=== PATIENT | male | born 1995 | race Caucasian/White ===

== ENCOUNTER 2017-10-24 16:43 | Emergency (ER) | payer SELFPAY ==
[~2017-10-24] VITALS: Ht 185.4 cm; Wt 72.1 kg
[~2017-10-24 16:43] MED LIST: IBUP600T26 PO; RANI300T PO
[2017-10-24 16:52] VITALS: BP 131/60; PULSE 96; RESP 18; TEMP 98.8; O2SAT 99
[2017-10-24] MEDS ORDERED: CLIN300C5 PO (17:26)
[2017-10-24] MEDS ORDERED: MAGICADU2 SWISH-SWAL (17:28)
--- NOTE | 2017-10-24 17:40 | PD ---
HPI . Mouth pain Chief Complaint: ENT Complaint Time Seen by Provider: 17:22 Travel History International Travel<30 days: No Contact w/Intl Traveler<30days: No Traveled to known affect area: No History of Present Illness HPI This patient presents with a chief complaint of mouth pain. Onset was a week or so ago. He states that he has been to see the dentist and that the dentist did not really do anything for him. He does state that the dentist gave him a quote for extraction of his wisdom teeth. The patient is complaining of pain in his gums. It has progressed to involve throat pain as well. He states that he has started running a fever in the past couple of days. T-max has been 100.1. He states that his throat and gum pain is getting progressively worse and he describes the pain as shooting and rates it 9/10. It has been unrelieved by warm salt water swishes and by Advil. PFSH Past Medical History ADHD: Yes (NOT ON ANY MEDS ANY MORE) Developmental Delay: No Diminished Hearing: No Respiratory: Yes (ENVIRONMENTAL ALLERGIES) Immunizations Current: Yes Tetanus Vaccination: < 5 Years Influenza Vaccination: Yes Past Surgical History Surgical History: No Previous Surgery Social History Alcohol Use: Yes (social) Tobacco Use: Yes (1/2 PPD) Substance Use: Yes (marijuana not abused) Allergies-Medications (Allergen,Severity, Reaction): Coded Allergies: codeine (Unverified Allergy, Severe, BEHAVIORAL PROBLEMS , 10/24/17) denies Reported Meds & Prescriptions Reported Meds & Active Scripts Active Magic Mouthwash Adult Liq (Multi-Ingredient Mouthwash/Gargle) 120 Ml Susp 5 Ml SWISH-SWAL ACHS Each 5mL contains: Nystatin 200,000units, Diphenhydramine 4.25mg, Viscous Lidocaine 10mg, Munoz syrup 0.8 mL Clindamycin (Clindamycin HCl) 300 Mg Cap 600 Mg PO Q8H 10 Days Review of Systems Except as stated in HPI: all other systems reviewed are Neg General / Constitutional: Positive: Fever, Chills HENT: Positive: Sore Throat, Gingival Bleeding, Dental Difficulties Physical Exam Narrative GENERAL: Awake and alert and in no acute distress. SKIN: Warm and dry. Normal color and turgor. HEAD: Normocephalic/atraumatic. EYES: Pupils are equal. Extraocular movements are intact. ENT: His gingiva are erythematous and swollen and hyperemic. He also has some erythema of his oropharynx with tonsillar enlargement. NECK: Normal range of motion. No cervical lymphadenopathy. RESPIRATORY: Nonlabored respirations. MUSCULOSKELETAL: Atraumatic. NEUROLOGICAL: Nonfocal. PSYCHIATRIC: Appropriate mood and affect. Data Data Last Documented VS Vital Signs Date Time Temp Pulse Resp B/P (MAP) Pulse Ox O2 Delivery O2 Flow Rate FiO2 10/24/17 16:52 98.8 96 18 131/60 (83) 99 Orders Orders Ed Discharge Order (10/24/17 17:35) MDM Medical Decision Making Medical Screen Exam Complete: Yes Emergency Medical Condition: Yes Differential Diagnosis Differential diagnosis of mouth pain includes but is not limited to thrush, aphthous ulcers, dental caries, dental abscess, gingivitis, trauma Narrative Course This patient presents with progressively worsening pain and erythema of the gingiva. He has now developed a sore throat and a temperature of about 100.1. On exam, his gingiva is erythematous, swollen and hyperemic. His oropharynx has some erythema with associated tonsillar enlargement and exudate. He will be discharged with prescriptions for clindamycin and Magic mouthwash. Diagnosis Primary Impression: Gingivitis Additional Impression: Pharyngitis Qualified Codes: J02.9 - Acute pharyngitis, unspecified Patient Instructions: General Instructions, Gingivitis (ED), Pharyngitis (ED) Departure Forms: Tests/Procedures Additional Instructions: continue swishing warm salt water in your mouth 3-4 times/day. Scripts Gcunnstu-[id number]-Yeojcxgcn Liq (Magic Mouthwash Adult Liq) 120 Ml Susp 5 ML SWISH-SWAL ACHS for Mouth sores, #120 ML 0 Refills Each 5mL contains: Nystatin 200,000units, Diphenhydramine 4.25mg, Viscous Lidocaine 10mg, Munoz syrup 0.8 mL Prov: Any Cabello MD 10/24/17 Clindamycin (Clindamycin) 300 Mg Cap 600 MG PO Q8H for Infection for 10 Days, #60 CAP 0 Refills Prov: Any Cabello MD 10/24/17 Disposition: 01 DISCHARGE HOME Condition: Stable Any Cabello MD Oct 24, 2017 17:40
== END 2017-10-24 17:42 | disposition home or self-care (01) ==
LOC: PHEFT 16:43
DX: K05.10 Chronic gingivitis, plaque induced (principal); J02.9 Acute pharyngitis, unspecified; F90.9 Attention-deficit hyperactivity disorder, unspecified type; F17.200 Nicotine dependence, unspecified, uncomplicated; Z88.5 Allergy status to narcotic agent
CPT/HCPCS: 99283